=== PATIENT | male | born 1975 | race Caucasian/White ===

== ENCOUNTER 2020-05-02 09:33 | Emergency (ER) | payer BC ==
[~2020-05-02] VITALS: Ht 172.7 cm; Wt 91.5 kg
[2020-05-02 09:47] VITALS: BP 203/126
== END 2020-05-02 11:30 | disposition home or self-care (01) ==
LOC: ER 09:34
DX: M72.2 Plantar fascial fibromatosis (principal); M79.671 Pain in right foot; I10 Essential (primary) hypertension; Z72.89 Other problems related to lifestyle
CPT/HCPCS: 73630; 99283